=== PATIENT | male | born 1960 | race Caucasian/White ===

== ENCOUNTER 2017-08-13 16:37 | Emergency (ER) | payer MEDICARE ==
[2017-08-13] MEDS ORDERED: IV NORMAL SALINE 1,000ML 1,000 ML IV SCH (17:53)
[2017-08-13] MEDS ORDERED: ONDANSETRON PF 4 MG/2 ML VIAL. IV ONE (18:00)
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
[2017-08-13 18:29] LABS: BASO # 0.1 x10^3/uL (0.0-0.2); BASO % 1 % (0-3); EOS # 0.2 x10^3/uL (0.0-0.7); EOS % 1 % (0-3); HEMATOCRIT 37.6 % (39.0-53.0); HEMOGLOBIN 12.7 g/dL (13.0-17.5); LYMPH # 2.6 x10^3/uL (1.0-4.8); LYMPH % 22 % (24-48); MEAN CORPUSCULAR HEMOGLOBIN 32 pg (25-35); MEAN CORPUSCULAR HGB CONC 34 g/dL (31-37); MEAN CORPUSCULAR VOLUME 96 fL (79-100); MONO # 2.4 x10^3/uL (0.0-1.1); MONO % 19 % (0-9); NEUT # 7.1 x10^3uL (1.8-7.7); NEUT % 58 % (31-73); PLATELET COUNT 240 x10^3/uL (140-400); RED BLOOD COUNT 3.93 x10^6/uL (4.30-5.70); RED CELL DISTRIBUTION WIDTH 16.5 % (11.5-14.5); WHITE BLOOD COUNT 12.3 x10^3/uL (4.0-11.0)
[2017-08-13 18:39] LABS: ALBUMIN 2.4 g/dL (3.4-5.0); CREATININE 1.2 mg/dL (0.7-1.3); GFR 62.2; POTASSIUM 3.5 mmol/L (3.5-5.1); TOTAL BILIRUBIN 2.3 mg/dL (0.2-1.0); TOTAL PROTEIN 6.3 g/dL (6.4-8.2)
[2017-08-13 18:42] LABS: DIRECT BILIRUBIN 1.8 mg/dL (0.0-0.2)
[2017-08-13 18:58] LABS: BILIRUBIN,URINE MOD (NEG); CLARITY,URINE CLEAR; COLOR,URINE AMBER
[2017-08-13 18:59] LABS: AMPHETAMINE/METHAMPHETAMINE NEG (NEG); BARBITURATES NEG (NEG); BENZODIAZEPINES NEG (NEG); CANNABINOIDS NEG (NEG); COCAINE NEG (NEG); METHADONE NEG (NEG); OPIATES POS (NEG); PHENCYCLIDINE NEG (NEG)
[2017-08-13 19:03] LABS: BACTERIA,URINE 0 /HPF (0-FEW); RBC,URINE RARE /HPF (0-2); SQUAMOUS EPITHELIAL CELL,UR FEW /LPF; WBC,URINE OCC /HPF (0-4)
[2017-08-13 20:15] VITALS: BP 118/50
== END 2017-08-13 21:46 | disposition short-term general hospital (02) ==
LOC: ER 16:37
DX: M54.5 Low back pain (principal); R60.0 Localized edema; Z88.6 Allergy status to analgesic agent; Z88.7 Allergy status to serum and vaccine
CPT/HCPCS: 36415; 80048; 80076; 80307; 81001; 82550; 83690; 85025; 85610; 85730; 96361; 96374; 96375; 96376; 99285; J2405; J3010; G0479; J7030